=== PATIENT | female | born 1970 | race Hispanic/Latino ===

== ENCOUNTER 2021-05-16 17:15 | Inpatient (IN) | payer MEDICARE, MEDICAID ==
[2021-05-16 18:06] LABS: #Eosinphils 0.3 thou/uL (0.0-0.7); #Lymphocytes 1.7 thou/uL (1.20-3.40); #Monocytes 0.8 thou/uL (0.11-0.59); %Basophils 0.6 % (0.0-1.0); %Eosinophils 3.7 % (0.0-10.0); %Neutrophils 63.7 % (42.0-75.0); Hemoglobin 9.6 g/dL (12.0-16.0); Mean Corpuscular HGB CONC 28.4 g/dL (32.0-36.0); Mean Corpuscular Hemoglobin 19.9 pg (27.0-31.0); Mean Platelet Volume 5.3 fL (7.4-10.4); Platelet Count 326 thou/uL (130-400); RBC Distribution Width 20.2 % (11.5-14.5); Red Blood Cell (RBC) Count 4.82 mill/uL (4.20-5.40); White Blood Cell (WBC) Count 7.8 thou/uL (4.8-10.8)
[2021-05-16 18:24] LABS: Anisocytosis SLIGHT = 6-15 cells (100X) (0-5/hpf); Hypochromia SLIGHT = 6-15 cells (100X) (0-5/hpf); MDiff Complete? YES; Microcytosis SLIGHT = 6-15 cells (100X) (0-5/hpf); Ovalocytes SLIGHT = 2-5 cells (100X) (0-1/hpf); Platelet Morphology Comment Appears Adequate; Polychromasia SLIGHT = 2-3 cells (100X) (0-2/hpf)
[2021-05-16 18:35] LABS: Albumin 3.5 g/dL (3.5-5.0)
[2021-05-16 18:36] LABS: Chloride 102 mmol/L (98-107); Potassium 4.6 mmol/L (3.5-5.1); Sodium 137 mmol/L (136-145)
[2021-05-16 18:37] LABS: Calcium 8.8 mg/dL (7.8-10.44); Glucose 88 mg/dL (70-105)
[2021-05-16 18:38] LABS: Globulin 3.8 g/dL (2.4-3.5); Protein, Total 7.3 g/dL (6.0-8.3)
[2021-05-16 18:39] LABS: Anion Gap 12 mmol/L (10-20); Bilirubin, Total 0.7 mg/dL (0.2-1.2); Carbon Dioxide 28 mmol/L (22-29)
[2021-05-16 18:40] LABS: Alkaline Phosphatase 74 U/L (40-110)
[2021-05-16 18:41] LABS: Calc. Creatinine Clearance 0 mL/min (70-130)
[2021-05-16 18:42] LABS: BUN (Urea Nitrogen) 7 mg/dL (7.0-18.7)
[2021-05-16 18:43] LABS: ALT (SGPT) 11 U/L (8-55); AST (SGOT) 27 U/L (5-34)
[2021-05-16] MEDS ORDERED: Enoxaparin Sodium 80 MG/0.8 ML SYRINGE ONE (18:54)
[2021-05-16 20:58] VITALS: BMI 56.1
[2021-05-16] MEDS ORDERED: Acetaminophen 650 MG Suppository PR PRN (21:00)
[2021-05-16] MEDS ORDERED: Ondansetron ODT 4 MG TAB PO PRN (21:00)
[2021-05-16] MEDS ORDERED: Ondansetron PF 4 MG/2 ML Vial IVP PRN (21:00)
[2021-05-17 05:37] LABS: Iron 18 ug/dL (50-170); Iron Binding Capacity, Total 348 mcg/dL (265-497)
[2021-05-17 05:38] LABS: Anion Gap 8 mmol/L (10-20); BUN (Urea Nitrogen) 6 mg/dL (7.0-18.7); Calc. Creatinine Clearance 262 mL/min (70-130); Calcium 8.7 mg/dL (7.8-10.44); Carbon Dioxide 31 mmol/L (22-29); Chloride 103 mmol/L (98-107); Glucose 109 mg/dL (70-105); Iron 17 ug/dL (50-170); Iron Binding Capacity, Total 350 mcg/dL (265-497); Potassium 4.2 mmol/L (3.5-5.1); Sodium 138 mmol/L (136-145)
[2021-05-17 06:40] LABS: #Eosinphils 0.3 thou/uL (0.0-0.7); #Lymphocytes 2.1 thou/uL (1.20-3.40); #Monocytes 0.9 thou/uL (0.11-0.59); #Neutrophils 5.8 thou/uL (1.40-6.50); %Basophils 0.5 % (0.0-1.0); %Eosinophils 3.2 % (0.0-10.0); %Lymphocytes 22.9 % (21.0-51.0); %Monocytes 9.4 % (0.0-10.0); Anisocytosis MODERATE=16-30 cells (100X) (0-5/hpf); Hemoglobin 9.9 g/dL (12.0-16.0); Hypochromia SLIGHT = 6-15 cells (100X) (0-5/hpf); MDiff Complete? YES; Mean Corpuscular HGB CONC 27.8 g/dL (32.0-36.0); Mean Corpuscular Hemoglobin 19.9 pg (27.0-31.0); Mean Corpuscular Volume 71.5 fL (78.0-98.0); Mean Platelet Volume 10.1 fL (7.4-10.4); Platelet Count 342 thou/uL (130-400); RBC Distribution Width 19.5 % (11.5-14.5); Red Blood Cell (RBC) Count 4.98 mill/uL (4.20-5.40); White Blood Cell (WBC) Count 9.1 thou/uL (4.8-10.8)
[2021-05-17] MEDS: Acetaminophen 325 MG TAB PO PRN ×2 (09:10→21:23)
[2021-05-17] MEDS: Enoxaparin Sodium 40 MG/0.4 ML SYRINGE SC SCH (09:11)
[2021-05-17] MEDS ORDERED: Furosemide 40 MG/4 ML VIAL SLOW IVP SCH ×2 (10:15→14:00)
[2021-05-17] MEDS ORDERED: Polyethylene Glycol 3350 17 GM Packet PO PRN (10:16)
[2021-05-17 12:35] LABS: SARS-CoV-2 PCR by NAA Not Detected (NotDetected)
[2021-05-18 04:20] LABS: Hemoglobin A1c 5.9 % (4.0-6.0)
[2021-05-18 04:36] LABS: #Eosinphils 0.2 thou/uL (0.0-0.7); #Lymphocytes 1.7 thou/uL (1.20-3.40); #Monocytes 0.9 thou/uL (0.11-0.59); #Neutrophils 5.7 thou/uL (1.40-6.50); %Basophils 0.4 % (0.0-1.0); %Eosinophils 2.5 % (0.0-10.0); %Lymphocytes 19.9 % (21.0-51.0); %Monocytes 10.3 % (0.0-10.0); BUN (Urea Nitrogen) 8 mg/dL (7.0-18.7); Calc. Creatinine Clearance 262 mL/min (70-130); Calcium 8.4 mg/dL (7.8-10.44); Cardiac Risk 2.4 (Less than 4.5); Cholesterol 137 mg/dl (< 200 Desired); Glucose 140 mg/dL (70-105); HDL Cholesterol 56 mg/dL (>60 Neg Risk); Hemoglobin 9.4 g/dL (12.0-16.0); LDL Cholesterol, Calculated 68 mg/dL; Magnesium 1.8 mg/dL (1.6-2.6); Mean Corpuscular HGB CONC 27.4 g/dL (32.0-36.0); Mean Corpuscular Hemoglobin 19.9 pg (27.0-31.0); Mean Corpuscular Volume 72.5 fL (78.0-98.0); Platelet Count 314 thou/uL (130-400); RBC Distribution Width 19.6 % (11.5-14.5); Red Blood Cell (RBC) Count 4.73 mill/uL (4.20-5.40); Triglycerides 67 mg/dL (Less than 150); White Blood Cell (WBC) Count 8.5 thou/uL (4.8-10.8)
[2021-05-18 04:46] LABS: Chloride 96 mmol/L (98-107); Sodium 136 mmol/L (136-145)
[2021-05-18 04:49] LABS: Anion Gap 12 mmol/L (10-20); Carbon Dioxide 32 mmol/L (22-29)
[2021-05-18] MEDS: Acetaminophen 325 MG TAB PO PRN (05:00)
[2021-05-18] MEDS: Ferrous Gluconate 324 MG TAB PO SCH (09:00)
[2021-05-18] MEDS: Potassium Chloride 20 MEQ TAB PO SCH (09:00)
[2021-05-18] MEDS: Enoxaparin Sodium 40 MG/0.4 ML SYRINGE SC SCH (09:00)
[2021-05-18 15:42] LABS: Bacteria/HPF None Seen HPF (None Seen); Bilirubin Negative (Negative); Blood, Urine 3+ (Negative); Clarity Clear (Clear); Glucose, Urine (Dipstick) Normal (Negative); Ketone, Urine Negative (Negative); Leukocyte 25 Leu/uL (Negative); Nitrite Negative (Negative); Protein, Urine (Dipstick) 30 mg/dL (Neg-Trace); RBC/HPF 0-3 HPF (0-3); Specific Gravity, Urine 1.021 (1.002-1.036); Squamous Epithelial 0-3 HPF (0-3); pH, Urine 6.5 (5.0-9.0)
[2021-05-18 15:44] LABS: Urine Culture Reflex Yes Yes
[2021-05-19 04:24] LABS: #Basophils 0.1 thou/uL (0.0-0.2); #Eosinphils 0.2 thou/uL (0.0-0.7); #Lymphocytes 1.7 thou/uL (1.20-3.40); #Monocytes 0.9 thou/uL (0.11-0.59); #Neutrophils 6.1 thou/uL (1.40-6.50); %Basophils 0.6 % (0.0-1.0); %Eosinophils 2.6 % (0.0-10.0); %Lymphocytes 18.8 % (21.0-51.0); %Monocytes 9.5 % (0.0-10.0); %Neutrophils 68.5 % (42.0-75.0); Hemoglobin 9.3 g/dL (12.0-16.0); Mean Corpuscular HGB CONC 27.3 g/dL (32.0-36.0); Mean Corpuscular Hemoglobin 19.7 pg (27.0-31.0); Mean Corpuscular Volume 72.4 fL (78.0-98.0); Mean Platelet Volume 10.1 fL (7.4-10.4); Platelet Count 290 thou/uL (130-400); RBC Distribution Width 19.1 % (11.5-14.5)
[2021-05-19 04:41] LABS: Anion Gap 8 mmol/L (10-20); BUN (Urea Nitrogen) 7 mg/dL (7.0-18.7); Calc. Creatinine Clearance 290 mL/min (70-130); Calcium 8.5 mg/dL (7.8-10.44); Carbon Dioxide 36 mmol/L (22-29); Chloride 97 mmol/L (98-107); Glucose 113 mg/dL (70-105); Potassium 4.4 mmol/L (3.5-5.1); Sodium 137 mmol/L (136-145)
[2021-05-19 07:06] LABS: Magnesium 1.9 mg/dL (1.6-2.6)
[2021-05-19] MEDS: Potassium Chloride 20 MEQ TAB PO SCH (08:21)
[2021-05-19] MEDS: Enoxaparin Sodium 40 MG/0.4 ML SYRINGE SC SCH (08:22)
[2021-05-19] MEDS: Ferrous Gluconate 324 MG TAB PO SCH (08:22)
[2021-05-19] MEDS ORDERED: FLU VACC QS2021-22(6MOS UP)/PF 60 MCG/0.5 ML SYRINGE IM ONE (09:00)
[2021-05-19 16:37] VITALS: BP 143/85; TEMP 98.4
== END 2021-05-19 17:17 | disposition home or self-care (01) | DRG 314 ==
LOC: ERS 17:15 → MSONC 19:28 → 2NO 05-17 11:58
PROVIDERS: ADMIT Student in an Organized Health Care Education/Training Program; ATTEND Internal Medicine
DX: I31.8 Other specified diseases of pericardium (principal); J96.01 Acute respiratory failure with hypoxia; Z68.43 Body mass index [BMI] 50.0-59.9, adult; N39.0 Urinary tract infection, site not specified; Z20.822 Contact with and (suspected) exposure to COVID-19; I31.3 Pericardial effusion (noninflammatory); I27.21 Secondary pulmonary arterial hypertension; E66.01 Morbid (severe) obesity due to excess calories; D50.9 Iron deficiency anemia, unspecified; F41.9 Anxiety disorder, unspecified; F31.9 Bipolar disorder, unspecified; G47.33 Obstructive sleep apnea (adult) (pediatric); I10 Essential (primary) hypertension; R00.1 Bradycardia, unspecified
CPT/HCPCS: 36415; 71045; 71046; 71275; 80048; 80053; 80061; 81001; 82728; 83036; 83540; 83550; 83735; 83880; 84443; 84484; 85025; 87086; 93005; 93306; 93970; 94760; 96372; J1650; J1940; U0003; U0005

== ENCOUNTER 2021-10-04 16:30 | Observation (INO) | payer MEDICARE, OTHER ==
[2021-10-04] MEDS ORDERED: Nitroglycerin 2% Ointment 1 INCH/1 GM Packet ONE (17:08)
[2021-10-04] MEDS ORDERED: Furosemide 40 MG/4 ML VIAL ONE (17:08)
[2021-10-04 17:15] LABS: Bilirubin Negative (Negative); Blood, Urine Negative (Negative); Clarity Clear (Clear); Glucose, Urine (Dipstick) Normal (Negative); Ketone, Urine Negative (Negative); Leukocyte Negative Leu/uL (Negative); Nitrite Negative (Negative); Protein, Urine (Dipstick) 10 mg/dL (Neg-Trace); Specific Gravity, Urine 1.009 (1.002-1.036); Urobilinogen Normal mg/dL (Less than 2)
[2021-10-04 17:40] LABS: Hemoglobin 8.5 g/dL (12.0-16.0); Mean Corpuscular HGB CONC 28.4 g/dL (32.0-36.0); Mean Corpuscular Hemoglobin 19.9 pg (27.0-31.0); Mean Platelet Volume 11.7 fL (7.4-10.4); Platelet Count 262 thou/uL (130-400); RBC Distribution Width 20.3 % (11.5-14.5); Red Blood Cell (RBC) Count 4.27 mill/uL (4.20-5.40); White Blood Cell (WBC) Count 7.7 thou/uL (4.8-10.8)
[2021-10-04 17:55] LABS: ALT (SGPT) 7 U/L (8-55); AST (SGOT) 32 U/L (5-34); Albumin 3.1 g/dL (3.5-5.0); Alkaline Phosphatase 63 U/L (40-110); Anion Gap 15 mmol/L (10-20); BUN (Urea Nitrogen) 6 mg/dL (7.0-18.7); Bilirubin, Total 0.8 mg/dL (0.2-1.2); Calc. Creatinine Clearance 0 mL/min (70-130); Calcium 8.4 mg/dL (7.8-10.44); Carbon Dioxide 28 mmol/L (22-29); Chloride 102 mmol/L (98-107); Estimated GFR 106; Globulin 3.7 g/dL (2.4-3.5); Glucose 95 mg/dL (70-105); Potassium 4.9 mmol/L (3.5-5.1); Protein, Total 6.8 g/dL (6.0-8.3); Sodium 140 mmol/L (136-145)
[2021-10-04 18:05] LABS: #Eosinphils 0.2 thou/uL (0.0-0.7); #Lymphocytes 1.3 thou/uL (1.20-3.40); #Monocytes 0.7 thou/uL (0.11-0.59); #Neutrophils 5.4 thou/uL (1.40-6.50); %Basophils 0.5 % (0.0-1.0); %Eosinophils 2.8 % (0.0-10.0); %Lymphocytes 17.4 % (21.0-51.0); %Monocytes 8.7 % (0.0-10.0); %Neutrophils 70.6 % (42.0-75.0)
[2021-10-04 18:11] LABS: Anisocytosis SLIGHT = 6-15 cells (100X) (0-5/hpf); Hypochromia SLIGHT = 6-15 cells (100X) (0-5/hpf); MDiff Complete? YES; Microcytosis SLIGHT = 6-15 cells (100X) (0-5/hpf); Ovalocytes SLIGHT = 2-5 cells (100X) (0-1/hpf); Platelet Morphology Comment Appears Adequate; Polychromasia SLIGHT = 2-3 cells (100X) (0-2/hpf)
[2021-10-04 21:02] LABS: Troponin I Less than 0.010 ng/mL (< 0.028)
[2021-10-04] MEDS ORDERED: Ondansetron PF 4 MG/2 ML Vial IVP PRN (21:15)
[2021-10-04] MEDS ORDERED: Acetaminophen 325 MG TAB PO PRN (21:15)
[2021-10-04] MEDS ORDERED: Ondansetron ODT 4 MG TAB PO PRN (21:15)
[2021-10-04] MEDS ORDERED: Acetaminophen 650 MG Suppository PR PRN (21:15)
[2021-10-04] MEDS ORDERED: Furosemide 40 MG/4 ML VIAL SLOW IVP SCH (22:30)
[2021-10-04] MEDS ORDERED: Electrolyte Replacement Protocol 1 EACH FS SCH (22:30)
[2021-10-04] MEDS ORDERED: Iron, Sodium Ferric Gluconate 125 MG in Sodium Chloride 0.9% 100 ML IVPB SCH (23:15)
[2021-10-04 23:47] LABS: Iron 18 ug/dL (50-170); Iron Binding Capacity, Total 340 mcg/dL (265-497)
[2021-10-04 23:51] LABS: Troponin I 0.013 ng/mL (< 0.028)
[2021-10-05 00:36] VITALS: BMI 61.2
[2021-10-05 04:43] LABS: Anion Gap 13 mmol/L (10-20); BUN (Urea Nitrogen) 7 mg/dL (7.0-18.7); Calc. Creatinine Clearance 249 mL/min (70-130); Calcium 8.8 mg/dL (7.8-10.44); Carbon Dioxide 33 mmol/L (22-29); Chloride 98 mmol/L (98-107); Estimated GFR 106; Glucose 125 mg/dL (70-105); Sodium 140 mmol/L (136-145)
[2021-10-05 05:39] LABS: #Eosinphils 0.2 thou/uL (0.0-0.7); #Lymphocytes 1.2 thou/uL (1.20-3.40); %Basophils 0.4 % (0.0-1.0); %Eosinophils 2.5 % (0.0-10.0); %Lymphocytes 12.9 % (21.0-51.0); %Monocytes 10.5 % (0.0-10.0); %Neutrophils 73.7 % (42.0-75.0); Anisocytosis SLIGHT = 6-15 cells (100X) (0-5/hpf); Hemoglobin 8.8 g/dL (12.0-16.0); Hypochromia SLIGHT = 6-15 cells (100X) (0-5/hpf); MDiff Complete? YES; Mean Corpuscular HGB CONC 27.4 g/dL (32.0-36.0); Mean Corpuscular Hemoglobin 19.4 pg (27.0-31.0); Mean Corpuscular Volume 70.6 fL (78.0-98.0); Mean Platelet Volume 5.5 fL (7.4-10.4); Microcytosis SLIGHT = 6-15 cells (100X) (0-5/hpf); Platelet Count 303 thou/uL (130-400); RBC Distribution Width 20.7 % (11.5-14.5); Red Blood Cell (RBC) Count 4.55 mill/uL (4.20-5.40); White Blood Cell (WBC) Count 9.5 thou/uL (4.8-10.8)
[2021-10-05] MEDS ORDERED: Furosemide 40 MG TAB ONE (05:59)
[2021-10-05 08:45] LABS: Magnesium 1.9 mg/dL (1.6-2.6)
[2021-10-05] MEDS: Furosemide 40 MG/4 ML VIAL SLOW IVP SCH (09:55)
[2021-10-05] MEDS: Enoxaparin Sodium 40 MG/0.4 ML SYRINGE SC SCH (09:55)
[2021-10-05] MEDS ORDERED: Magnesium 2 GM/50 ML(in water) 2 GM in Premix Bag 1 BAG IVPB SCH (10:00)
[2021-10-05] MEDS ORDERED: Magnesium 2 GM/50 ML BAG (IN WATER) ONE (10:36)
[2021-10-05] MEDS: Lisinopril 10 MG TAB PO SCH (17:16)
[2021-10-06] MEDS ORDERED: diphenhydrAMINE 25 MG CAP PO SCH (04:30)
[2021-10-06] MEDS: Furosemide 40 MG/4 ML VIAL SLOW IVP SCH (09:43)
[2021-10-06] MEDS: Lisinopril 10 MG TAB PO SCH (09:43)
[2021-10-06] MEDS: Enoxaparin Sodium 40 MG/0.4 ML SYRINGE SC SCH (09:43)
[2021-10-06] MEDS ORDERED: Ferrous Sulfate 325 MG TAB PO SCH (11:15)
[2021-10-06 12:26] VITALS: BP 132/77; TEMP 97.9
[2021-10-07] MEDS ORDERED: Ferrous Sulfate 325 MG TAB PO SCH (08:00)
== END 2021-10-06 15:02 | disposition home or self-care (01) ==
LOC: ERS 16:30 → 2NO 19:50
PROVIDERS: ADMIT Internal Medicine; ATTEND Internal Medicine
DX: J96.01 Acute respiratory failure with hypoxia (principal); I11.0 Hypertensive heart disease with heart failure; I50.33 Acute on chronic diastolic (congestive) heart failure; D50.9 Iron deficiency anemia, unspecified; Q24.8 Other specified congenital malformations of heart; G47.33 Obstructive sleep apnea (adult) (pediatric); I08.1 Rheumatic disorders of both mitral and tricuspid valves; E66.01 Morbid (severe) obesity due to excess calories; Z68.44 Body mass index [BMI] 60.0-69.9, adult; Z91.14 Patient's other noncompliance with medication regimen; Z20.822 Contact with and (suspected) exposure to COVID-19
CPT/HCPCS: 71045; 80048; 80053; 81003; 82728; 83540; 83550; 83735; 83880; 84484 ×2; 85025 ×2; 93005; 93306; 93798; 96374; 97139; 99285; U0003; U0005; 36415; 96372; 96375; 96376; G0378; J1650; J1940; J2916; J3475; J3490

== ENCOUNTER 2022-01-15 17:28 | Emergency (ER) | payer OTHER, MEDICAID ==
[~2022-01-15 17:28] MED LIST: Iopamidol-370 76% 500 ML 1 ML ONE
[2022-01-15] MEDS ORDERED: Lorazepam 2 MG/ML VIAL ONE (18:34)
[2022-01-15 18:42] LABS: #Eosinphils 0.1 thou/uL (0.0-0.7); #Lymphocytes 1.6 thou/uL (1.20-3.40); #Monocytes 0.6 thou/uL (0.11-0.59); #Neutrophils 3.8 thou/uL (1.40-6.50); %Basophils 0.4 % (0.0-1.0); %Eosinophils 2.4 % (0.0-10.0); %Lymphocytes 26.6 % (21.0-51.0); %Neutrophils 61.6 % (42.0-75.0); Hemoglobin 14.1 g/dL (12.0-16.0); Mean Corpuscular HGB CONC 30.8 g/dL (32.0-36.0); Mean Corpuscular Hemoglobin 27.3 pg (27.0-31.0); Mean Corpuscular Volume 88.5 fl (78.0-98.0); Mean Platelet Volume 6.2 fL (7.4-10.4); Platelet Count 194 10x3/uL (130-400); Red Blood Cell (RBC) Count 5.17 mill/uL (4.20-5.40); White Blood Cell (WBC) Count 6.1 10x3/uL (4.8-10.8)
[2022-01-15 19:38] LABS: ALT (SGPT) 21 U/L (8-55); AST (SGOT) 31 U/L (5-34); Albumin 3.7 g/dL (3.5-5.0); Alkaline Phosphatase 72 U/L (40-110); Anion Gap 11 mmol/L (10-20); BUN (Urea Nitrogen) 8 mg/dL (7.0-18.7); Bilirubin, Total 0.8 mg/dL (0.2-1.2); Calc. Creatinine Clearance 0 mL/min (70-130); Calcium 9.3 mg/dL (7.8-10.44); Carbon Dioxide 30 mmol/L (22-29); Chloride 102 mmol/L (98-107); Estimated GFR 108; Globulin 3.2 g/dL (2.4-3.5); Glucose 91 mg/dL (70-105); Potassium 3.4 mmol/L (3.5-5.1); Protein, Total 6.9 g/dL (6.0-8.3); Sodium 140 mmol/L (136-145)
[2022-01-15 19:46] LABS: Acetaminophen Less than 10.0 mcg/mL (10.0-30.0); Alcohol Less than 10 mg/dL (Less than 10); Salicylate Less than 8.0 mg/dL (15.0-30.0)
[2022-01-15 20:04] LABS: Bilirubin Negative (Negative); Blood, Urine Negative (Negative); Clarity Clear (Clear); Glucose, Urine (Dipstick) Normal (Negative); Ketone, Urine Negative (Negative); Leukocyte Negative Leu/uL (Negative); Nitrite Negative (Negative); Protein, Urine (Dipstick) 20 mg/dL (Neg-Trace); Urobilinogen Normal mg/dL (Less than 2); pH, Urine 5.5 (5.0-9.0)
[2022-01-15 20:05] LABS: Specific Gravity, Urine 1.054 (1.002-1.036)
[2022-01-15 20:09] LABS: Amphetamine Not Detected (NotDetected); Barbiturates Screen Not Detected (NotDetected); Benzodiazepine Screen Detected (NotDetected); Cocaine Metabolite Screen Not Detected (NotDetected); Methadone Not Detected (NotDetected); Methamphetamine Not Detected (NotDetected); Opiate Screen Not Detected (NotDetected); Oxycodone Screen Not Detected (NotDetected); Phencyclidine (PCP) Not Detected (NotDetected); THC/Cannabinoid Screen Not Detected (NotDetected); Tricyclic Screen Not Detected (NotDetected)
== END 2022-01-16 01:57 | disposition home or self-care (01) ==
LOC: ERS 17:28
DX: M54.2 Cervicalgia (principal); R07.9 Chest pain, unspecified; M54.9 Dorsalgia, unspecified; R06.02 Shortness of breath; I10 Essential (primary) hypertension; V49.9XXA Car occupant (driver) (passenger) injured in unspecified traffic accident, initial encounter; Y92.410 Unspecified street and highway as the place of occurrence of the external cause
CPT/HCPCS: 51701; 70450; 71045; 71260; 72125; 74177; 80053; 80306; 80307; 81003; 83880; 84443; 84484; 85025; 93005; 96374; J2060; Q9967

== ENCOUNTER 2022-05-26 20:32 | Inpatient (IN) | payer MEDICAID, MEDICARE, SELFPAY ==
[2022-05-26 21:13] LABS: #Eosinphils 0.1 thou/uL (0.0-0.7); #Lymphocytes 1.2 thou/uL (1.20-3.40); #Monocytes 0.7 thou/uL (0.11-0.59); #Neutrophils 8.5 thou/uL (1.40-6.50); %Eosinophils 0.9 % (0.0-10.0); %Lymphocytes 11.1 % (21.0-51.0); %Monocytes 6.4 % (0.0-10.0); %Neutrophils 81.6 % (42.0-75.0); Hemoglobin 14.9 g/dL (12.0-16.0); Mean Corpuscular HGB CONC 34.8 g/dL (32.0-36.0); Mean Corpuscular Hemoglobin 31.9 pg (27.0-31.0); Mean Corpuscular Volume 91.7 fl (78.0-98.0); Mean Platelet Volume 7.8 fL (7.4-10.4); Platelet Count 237 10x3/uL (130-400); Red Blood Cell (RBC) Count 4.69 mill/uL (4.20-5.40); White Blood Cell (WBC) Count 10.5 10x3/uL (4.8-10.8)
[2022-05-26] MEDS ORDERED: Lorazepam 1 MG TAB ONE (21:30)
[2022-05-26] MEDS ORDERED: hydrALAZINE 20 MG/ML VIAL ONE (21:44)
[2022-05-26 21:57] LABS: ALT (SGPT) 146 U/L (8-55); AST (SGOT) 326 U/L (5-34); Alkaline Phosphatase 185 U/L (40-110); Anion Gap 14 mmol/L (10-20); BUN (Urea Nitrogen) 10 mg/dL (9.8-20.1); Calc. Creatinine Clearance 0 mL/min (70-130); Calcium 9.5 mg/dL (7.8-10.44); Carbon Dioxide 27 mmol/L (22-29); Chloride 104 mmol/L (98-107); Estimated GFR 107; Globulin 3.6 g/dL (2.4-3.5); Glucose 111 mg/dL (70-105); Lipase 28 U/L (8-78); Potassium 3.9 mmol/L (3.5-5.1); Protein, Total 7.6 g/dL (6.0-8.3); Sodium 141 mmol/L (136-145)
[2022-05-26] MEDS ORDERED: Ketorolac Tromethamine 30 MG/ML VIAL ONE (22:38)
[2022-05-26 22:54] LABS: Troponin I Less than 0.010 ng/mL (< 0.028)
[2022-05-27] MEDS ORDERED: Piperacillin/Tazobactam 4.5 GM VIAL ONE (00:15)
[2022-05-27] MEDS ORDERED: Ondansetron ODT 4 MG TAB SL PRN (01:30)
[2022-05-27] MEDS ORDERED: Ondansetron PF 4 MG/2 ML Vial IVP PRN ×2 (01:30→18:39)
[2022-05-27] MEDS: Lactated Ringer's 1,000 ML IV SCH ×2 (01:48→09:10)
[2022-05-27 02:26] VITALS: BMI 49.3
[2022-05-27 02:53] LABS: #Eosinphils 0.1 thou/uL (0.0-0.7); #Lymphocytes 1.4 thou/uL (1.20-3.40); #Monocytes 0.8 thou/uL (0.11-0.59); #Neutrophils 5.7 thou/uL (1.40-6.50); %Basophils 0.6 % (0.0-1.0); %Lymphocytes 17.7 % (21.0-51.0); %Monocytes 9.9 % (0.0-10.0); %Neutrophils 70.7 % (42.0-75.0); Hemoglobin 13.5 g/dL (12.0-16.0); Mean Corpuscular HGB CONC 33.5 g/dL (32.0-36.0); Mean Corpuscular Hemoglobin 30.6 pg (27.0-31.0); Mean Corpuscular Volume 91.3 fl (78.0-98.0); Mean Platelet Volume 7.8 fL (7.4-10.4); Platelet Count 216 10x3/uL (130-400); Red Blood Cell (RBC) Count 4.41 mill/uL (4.20-5.40)
[2022-05-27 03:35] LABS: ALT (SGPT) 434 U/L (8-55); AST (SGOT) 893 U/L (5-34); Albumin 3.6 g/dL (3.5-5.0); Alkaline Phosphatase 208 U/L (40-110); Anion Gap 13 mmol/L (10-20); BUN (Urea Nitrogen) 8 mg/dL (9.8-20.1); Bilirubin, Total 1.5 mg/dL (0.2-1.2); Calc. Creatinine Clearance 231 mL/min (70-130); Calcium 8.9 mg/dL (7.8-10.44); Carbon Dioxide 25 mmol/L (22-29); Chloride 105 mmol/L (98-107); Estimated GFR 108; Globulin 3.1 g/dL (2.4-3.5); Glucose 85 mg/dL (70-105); Potassium 3.5 mmol/L (3.5-5.1); Protein, Total 6.7 g/dL (6.0-8.3); Sodium 139 mmol/L (136-145)
[2022-05-27 03:38] LABS: Troponin I Less than 0.010 ng/mL (< 0.028)
[2022-05-27] MEDS ORDERED: Piperacillin/Tazobactam 3.375 GM in Sodium Chloride 0.9% 100 ML IVPB SCH (05:00)
[2022-05-27] MEDS ORDERED: Ketorolac Tromethamine 30 MG/ML VIAL IVP PRN (05:00)
[2022-05-27] MEDS ORDERED: Bupivacaine HCl 0.5%/Epinephrine 1:200,000/PF 30 ml Vial ONE (07:12)
[2022-05-27] MEDS ORDERED: HumaLOG 300 UNITS/3 ML VIAL SC PRN (09:50)
[2022-05-27] MEDS ORDERED: Dextrose 50% Abboject 50 ML SYRINGE SLOW IVP PRN (09:50)
[2022-05-27] MEDS ORDERED: Dextrose 5% in Water 1,000 ML IV PRN (09:50)
[2022-05-27] MEDS ORDERED: Acetaminophen 500 MG TAB PO SCH (10:00)
[2022-05-27] MEDS ORDERED: Iopamidol 30 ML ONE (10:47)
[2022-05-27] MEDS ORDERED: FENTANYL 50 MCG/ML 1 ML VIAL ONE ×4 (11:32→13:49)
[2022-05-27] MEDS ORDERED: Glycopyrrolate 0.2 MG/ML 5 ML SYRINGE ONE (11:59)
[2022-05-27] MEDS ORDERED: Ketorolac Tromethamine 30 MG/ML VIAL ONE ×2 (11:59→17:10)
[2022-05-27] MEDS ORDERED: PROPOFOL 200 MG/20 ML VIAL ONE (11:59)
[2022-05-27] MEDS ORDERED: NEOSTIGMINE 3 MG/3 ML SYR 3 MG/3 ML SYRINGE ONE (11:59)
[2022-05-27] MEDS ORDERED: Rocuronium Bromide 10 MG/ML (10ML VIAL) ONE (11:59)
[2022-05-27] MEDS ORDERED: Ondansetron PF 4 MG/2 ML Vial ONE (11:59)
[2022-05-27] MEDS ORDERED: Lidocaine 1% PF 5 ML VIAL ONE (11:59)
[2022-05-27] MEDS ORDERED: SUGAMMADEX SODIUM 200 MG/2 ML VIAL ONE ×2 (13:11→13:16)
[2022-05-27] MEDS ORDERED: Promethazine HCl 25 MG/ML VIAL IM PRN (13:37)
[2022-05-27] MEDS ORDERED: Ondansetron HCl/PF 4 MG/2 ML Vial IVP PRN (13:37)
[2022-05-27] MEDS: traMADol HCl 50 MG TAB PO PRN ×2 (15:44→21:03)
[2022-05-27] MEDS: Acetaminophen 500 MG TAB PO PRN (16:51)
[2022-05-27] MEDS ORDERED: Ondansetron ODT 4 MG TAB PO PRN (18:39)
[2022-05-27] MEDS ORDERED: Morphine 4 MG/ML VIAL SLOW IVP PRN (18:42)
[2022-05-27] MEDS ORDERED: Ketorolac Tromethamine 30 MG/ML VIAL IVP SCH (18:45)
[2022-05-27] MEDS: Sodium Chloride 0.9% 1,000 ML IV SCH (20:54)
[2022-05-27] MEDS: Furosemide 40 MG TAB PO SCH (20:55)
[2022-05-28 06:10] LABS: #Lymphocytes 1.1 thou/uL (1.20-3.40); #Monocytes 0.9 thou/uL (0.11-0.59); #Neutrophils 9.4 thou/uL (1.40-6.50); %Basophils 0.4 % (0.0-1.0); %Lymphocytes 9.4 % (21.0-51.0); %Monocytes 7.8 % (0.0-10.0); %Neutrophils 82.5 % (42.0-75.0); Hemoglobin 11.7 g/dL (12.0-16.0); Mean Corpuscular HGB CONC 32.4 g/dL (32.0-36.0); Mean Corpuscular Hemoglobin 30.2 pg (27.0-31.0); Mean Corpuscular Volume 93.2 fl (78.0-98.0); Mean Platelet Volume 8.2 fL (7.4-10.4); Platelet Count 213 10x3/uL (130-400); RBC Distribution Width 13.1 % (11.5-14.5); Red Blood Cell (RBC) Count 3.88 mill/uL (4.20-5.40); White Blood Cell (WBC) Count 11.4 10x3/uL (4.8-10.8)
[2022-05-28 06:35] LABS: Anion Gap 11 mmol/L (10-20); BUN (Urea Nitrogen) 11 mg/dL (9.8-20.1); Calc. Creatinine Clearance 224 mL/min (70-130); Carbon Dioxide 27 mmol/L (22-29); Chloride 103 mmol/L (98-107); Sodium 137 mmol/L (136-145)
[2022-05-28 06:36] LABS: ALT (SGPT) 432 U/L (8-55); AST (SGOT) 356 U/L (5-34); Albumin 3.6 g/dL (3.5-5.0); Alkaline Phosphatase 220 U/L (40-110); Bilirubin, Total 0.9 mg/dL (0.2-1.2); Calcium 8.6 mg/dL (7.8-10.44); Estimated GFR 107; Globulin 3.1 g/dL (2.4-3.5); Glucose 113 mg/dL (70-105); Lipase 4 U/L (8-78); Protein, Total 6.7 g/dL (6.0-8.3)
[2022-05-28] MEDS: Sodium Chloride 0.9% 1,000 ML IV SCH (07:23)
[2022-05-28] MEDS: Lisinopril 10 MG TAB PO SCH (08:37)
[2022-05-28] MEDS: Atorvastatin Calcium 40 MG TAB PO SCH (08:37)
[2022-05-28] MEDS: Furosemide 40 MG TAB PO SCH ×2 (08:37→21:01)
[2022-05-28] MEDS: Ferrous Sulfate 325 MG TAB PO SCH (08:37)
[2022-05-28] MEDS: traMADol HCl 50 MG TAB PO PRN ×3 (08:45→21:00)
[2022-05-28] MEDS ORDERED: Lisinopril 10 MG TAB PO SCH (09:00)
[2022-05-28] MEDS: Ibuprofen 600 MG TAB PO PRN (12:36)
[2022-05-29] MEDS: traMADol HCl 50 MG TAB PO PRN ×2 (01:39→06:22)
[2022-05-29] MEDS: Ibuprofen 600 MG TAB PO PRN (04:34)
[2022-05-29 07:05] LABS: ALT (SGPT) 272 U/L (8-55); AST (SGOT) 133 U/L (5-34); Albumin 3.5 g/dL (3.5-5.0); Alkaline Phosphatase 172 U/L (40-110); Anion Gap 10 mmol/L (10-20); BUN (Urea Nitrogen) 13 mg/dL (9.8-20.1); Bilirubin, Total 0.9 mg/dL (0.2-1.2); Calc. Creatinine Clearance 221 mL/min (70-130); Calcium 8.6 mg/dL (7.8-10.44); Carbon Dioxide 28 mmol/L (22-29); Chloride 101 mmol/L (98-107); Estimated GFR 107; Globulin 2.9 g/dL (2.4-3.5); Glucose 83 mg/dL (70-105); Potassium 3.4 mmol/L (3.5-5.1); Protein, Total 6.4 g/dL (6.0-8.3); Sodium 136 mmol/L (136-145)
[2022-05-29] MEDS: Acetaminophen 500 MG TAB PO PRN (08:50)
[2022-05-29] MEDS: Lisinopril 10 MG TAB PO SCH (08:51)
[2022-05-29] MEDS: Furosemide 40 MG TAB PO SCH (08:51)
[2022-05-29] MEDS: Ferrous Sulfate 325 MG TAB PO SCH (08:51)
[2022-05-29] MEDS: Atorvastatin Calcium 40 MG TAB PO SCH (08:51)
[2022-05-29] MEDS ORDERED: HYDROcodone/Acetaminophen 5/325 mg Tablet PO PRN (11:54)
[2022-05-29 11:55] VITALS: BP 127/86; TEMP 97.8
[2022-05-29] MEDS ORDERED: Gabapentin 300 MG CAP PO SCH ×2 (12:00→15:00)
[2022-05-29] MEDS ORDERED: Polyethylene Glycol 3350 17 GM Packet PO SCH (21:00)
[2022-05-29] MEDS ORDERED: Methylcellulose 500 MG TAB PO SCH (21:00)
== END 2022-05-29 14:55 | disposition home or self-care (01) | DRG 418 ==
LOC: ERS 20:32 → SJJU 05-27 00:10
PROVIDERS: ADMIT Specialist; ATTEND Specialist
PROC: 0FT44ZZ Resection of Gallbladder, Percutaneous Endoscopic Approach (ICD-10-PCS; principal; 2022-05-27)
PROC: BF131ZZ Fluoroscopy of Gallbladder and Bile Ducts using Low Osmolar Contrast (ICD-10-PCS; 2022-05-27)
DX: K80.00 Calculus of gallbladder with acute cholecystitis without obstruction (principal); Z68.42 Body mass index [BMI] 45.0-49.9, adult; E66.01 Morbid (severe) obesity due to excess calories; E88.81 Metabolic syndrome and other insulin resistance; E11.9 Type 2 diabetes mellitus without complications; I10 Essential (primary) hypertension; K76.0 Fatty (change of) liver, not elsewhere classified; Z99.89 Dependence on other enabling machines and devices; Z79.899 Other long term (current) drug therapy; Z98.51 Tubal ligation status
CPT/HCPCS: 36415; 36416; 47532; 71045; 76705; 80053; 83605; 83690; 83880; 84484; 85025; 88304; 93005; 96365; 96375; C1889; J0360; J1611; J1650; J1885; J2270; J2405; J2543; J2704; J3010; J3490; J7050; J7120; Q9967